=== PATIENT | female | born 1995 | race Caucasian/White ===

== ENCOUNTER 2017-11-30 15:02 | Inpatient (IN) | payer OTHER ==
[~2017-11-30] VITALS: Ht 170.2 cm; Wt 50.2 kg
[2017-11-30] MEDS ORDERED: IV NORMAL SALINE 1000 ML BAG IV ONE (15:45)
[2017-11-30] MEDS ORDERED: MORPHINE SULFATE 2 MG/1 ML DISP.SYRIN IV ONE (15:45)
[2017-11-30] MEDS ORDERED: ONDANSETRON 4 MG/2 ML VIAL IV ONE (15:45)
[2017-11-30] MEDS ORDERED: PANTOPRAZOLE SODIUM 40 MG VIAL IV ONE (15:45)
[2017-11-30 15:59] LABS: EOSINOPHILS % (AUTO) 0.4 % (0.0-7.0); HEMATOCRIT 39.9 % (31.2-41.9); HEMOGLOBIN 13.2 g/dL (10.9-14.3); LYMPHOCYTES # (AUTO) 2.1 K/uL (20.0-40.0); LYMPHOCYTES % (AUTO) 43.4 % (20.5-51.5); MEAN CORPUSCULAR HEMOGLOBIN 27.6 uug (24.7-32.8); MEAN CORPUSCULAR HGB CONC 33 g/dL (32.3-35.6); MEAN CORPUSCULAR VOLUME 83.2 fL (75.5-95.3); MONOCYTES # (AUTO) 0.4 K/uL (2.0-10.0); MONOCYTES % (AUTO) 8.4 % (0.0-11.0); NEUTROPHILS # (AUTO) 2.3 K/uL (1.8-8.9); NEUTROPHILS % (AUTO) 47.8 % (38.5-71.5); PLATELET COUNT (AUTO) 198 K/uL (179-408); WHITE BLOOD COUNT (AUTO) 4.9 K/uL (3.8-11.8)
[2017-11-30] MEDS ORDERED: ONDANSETRON 4 MG/2 ML VIAL ONE ×2 (15:59→19:36)
[2017-11-30] MEDS ORDERED: PANTOPRAZOLE SODIUM 40 MG VIAL ONE (15:59)
[2017-11-30] MEDS ORDERED: MORPHINE SULFATE 2 MG/1 ML DISP.SYRIN ONE (16:00)
[2017-11-30 16:20] LABS: BILIRUBIN,DIRECT 0.1 mg/dL (0.0-0.2); BILIRUBIN,TOTAL 0.7 mg/dL (0.2-1.0); CREATININE 0.8 mg/dL (0.6-1.3); POTASSIUM 4.3 mmol/L (3.5-5.1); TOTAL PROTEIN, SERUM 6.8 g/dL (6.4-8.2)
[2017-11-30] MEDS ORDERED: NORMAL SALINE FLUSH 10 ML DISP.SYRIN ONE (16:43)
[2017-11-30] MEDS ORDERED: IV NORMAL SALINE 100 ML ONE (16:43)
[2017-11-30] MEDS ORDERED: IOHEXOL 300MG/ML 100 ML INFUS..BTL ONE (16:43)
[2017-11-30] MEDS ORDERED: MORPHINE SULFATE 4 MG/1 ML DISP.SYRIN IV ONE (16:45)
[2017-11-30] MEDS ORDERED: MORPHINE SULFATE 4 MG/1 ML DISP.SYRIN ONE (16:59)
[2017-11-30 17:28] LABS: *BILIRUBIN,URIN NEGATIVE (NEGATIVE); *BLOOD, URINE NEGATIVE (NEGATIVE); *CLARITY,URINE CLEAR (CLEAR); *COLOR,URINE YELLOW (YELLOW); *KETONES,URINE NEGATIVE (NEGATIVE); *PROTEIN,URINE NEGATIVE (NEGATIVE); *UROBILINOGEN,URINE 0.2 E.U./dl (NORMAL); LEUKOCYTE ESTERASE ,URINE NEGATIVE (NEGATIVE); NITRITE, URINE NEGATIVE (NEGATIVE); PH,URINE 7.5 (5.0-8.0); UGLUCOSE NEGATIVE (NEGATIVE)
[2017-11-30 17:47] LABS: BACTERIA,URINE MODERATE /HPF (NONE SEEN); RBC,URINE 0-3 /HPF (0-3); SQUAMOUS EPITHELIAL CELL,UR MODERATE /HPF (NONE SEEN)
[2017-11-30] MEDS ORDERED: KETOROLAC TROMETHAMINE 30 MG INJ ONE (18:42)
[2017-11-30] MEDS ORDERED: KETOROLAC TROMETHAMINE 30 MG INJ IVP ONE (19:00)
[2017-11-30] MEDS ORDERED: HYDROMORPHONE 1 MG/1 ML DISP.SYRIN IV ONE ×2 (19:30→21:15)
[2017-11-30] MEDS ORDERED: ONDANSETRON IV *ER 4 MG/2 ML VIAL IV ONE (19:30)
[2017-11-30] MEDS ORDERED: HYDROMORPHONE 2 MG/1 ML DISP.SYRIN ONE ×2 (19:35→21:17)
[2017-11-30] MEDS ORDERED: IV D5W-0.45% NS +20 KCL 1,000 ML IV ONE (21:04)
[2017-11-30 21:51] VITALS: BP 102/41
[2017-11-30] MEDS ORDERED: ACETAMINOPHEN 650 MG SUPP.RECT RC PRN (22:00)
[2017-11-30] MEDS ORDERED: BISACODYL 10 MG SUPP.RECT RC PRN (22:00)
[2017-11-30] MEDS: HYDROMORPHONE 2 MG/1 ML DISP.SYRIN IV PRN (23:08)
[2017-12-01] MEDS: HYDROMORPHONE 2 MG/1 ML DISP.SYRIN IV PRN ×7 (01:43→23:06)
[2017-12-01] MEDS: IV D5/ 0.9% NACL 1,000 ML IV PRN ×3 (01:48→23:09)
[2017-12-01 04:00] VITALS: BP 97/60
[2017-12-01] MEDS: diphenhydrAMINE 50 MG/1 ML VIAL IV PRN ×3 (05:52→20:19)
[2017-12-01 06:22] LABS: BASOPHILS % (AUTO) 0.1 % (0.0-2.0); EOSINOPHILS % (AUTO) 0.8 % (0.0-7.0); HEMOGLOBIN 11.9 g/dL (10.9-14.3); LYMPHOCYTES # (AUTO) 2.4 K/uL (20.0-40.0); LYMPHOCYTES % (AUTO) 57.3 % (20.5-51.5); MEAN CORPUSCULAR HEMOGLOBIN 28.2 uug (24.7-32.8); MEAN CORPUSCULAR HGB CONC 34 g/dL (32.3-35.6); MEAN CORPUSCULAR VOLUME 82.9 fL (75.5-95.3); MONOCYTES # (AUTO) 0.3 K/uL (2.0-10.0); MONOCYTES % (AUTO) 8.1 % (0.0-11.0); NEUTROPHILS # (AUTO) 1.4 K/uL (1.8-8.9); NEUTROPHILS % (AUTO) 33.7 % (38.5-71.5); PLATELET COUNT (AUTO) 170 K/uL (179-408); RED BLOOD CELL COUNT(AUTO) 4.23 MIL/uL (3.63-4.92); WHITE BLOOD COUNT (AUTO) 4.1 K/uL (3.8-11.8)
[2017-12-01 06:30] LABS: HEMATOCRIT 35.1 % (31.2-41.9)
[2017-12-01 06:34] LABS: BILIRUBIN,TOTAL 0.6 mg/dL (0.2-1.0); CREATININE 0.9 mg/dL (0.6-1.3); MAGNESIUM 1.8 mg/dL (1.8-2.4); POTASSIUM 4.9 mmol/L (3.5-5.1); TOTAL PROTEIN, SERUM 5.8 g/dL (6.4-8.2)
[2017-12-01] MEDS: PANTOPRAZOLE SODIUM 40 MG VIAL IV SCH (07:00)
[2017-12-01] MEDS: ONDANSETRON 4 MG/2 ML VIAL IV PRN ×3 (09:26→23:07)
[2017-12-01] MEDS ORDERED: BISACODYL 10 MG SUPP.RECT RC ONE (10:30)
[2017-12-01 11:14] VITALS: BP 91/47
[2017-12-01] MEDS: SUCRALFATE 1 G/10 ML LIQUID UDC PO SCH ×3 (12:12→21:35)
[2017-12-01 15:27] VITALS: BP 93/50
[2017-12-01 15:40] VITALS: BP 100/50
[2017-12-01 17:10] VITALS: BP 187/83
[2017-12-01 20:25] VITALS: BP 97/51
[2017-12-01 22:52] LABS: *AMPHETAMINE, URINE NEGATIVE (NEGATIVE); *BARBITURATE, URINE NEGATIVE (NEGATIVE); *CANNABINOID, URINE NEGATIVE (NEGATIVE); *COCCAINE, URINE NEGATIVE (NEGATIVE); *OPIATE, URINE POSITIVE (NEGATIVE); *PHENCYCLIDINE SCREEN,URINE NEGATIVE (NEGATIVE)
[2017-12-02] MEDS: HYDROMORPHONE 2 MG/1 ML DISP.SYRIN IV PRN ×6 (03:26→20:08)
[2017-12-02 04:00] VITALS: BP 90/47
[2017-12-02] MEDS: PANTOPRAZOLE SODIUM 40 MG VIAL IV SCH (06:25)
[2017-12-02 06:26] LABS: CREATININE 0.9 mg/dL (0.6-1.3); MAGNESIUM 1.6 mg/dL (1.8-2.4); PHOSPHOROUS 4.7 mg/dL (2.5-4.9)
[2017-12-02] MEDS: SUCRALFATE 1 G/10 ML LIQUID UDC PO SCH ×4 (06:30→20:06)
[2017-12-02 06:45] LABS: EOSINOPHILS % (AUTO) 0.6 % (0.0-7.0); HEMATOCRIT 34.2 % (31.2-41.9); HEMOGLOBIN 11.6 g/dL (10.9-14.3); LYMPHOCYTES # (AUTO) 1.7 K/uL (20.0-40.0); LYMPHOCYTES % (AUTO) 48.5 % (20.5-51.5); MEAN CORPUSCULAR HEMOGLOBIN 28.2 uug (24.7-32.8); MEAN CORPUSCULAR HGB CONC 34 g/dL (32.3-35.6); MEAN CORPUSCULAR VOLUME 83.5 fL (75.5-95.3); MONOCYTES # (AUTO) 0.3 K/uL (2.0-10.0); MONOCYTES % (AUTO) 8.7 % (0.0-11.0); NEUTROPHILS # (AUTO) 1.5 K/uL (1.8-8.9); NEUTROPHILS % (AUTO) 42.2 % (38.5-71.5); PLATELET COUNT (AUTO) 161 K/uL (179-408); WHITE BLOOD COUNT (AUTO) 3.6 K/uL (3.8-11.8)
[2017-12-02] MEDS: IV D5/ 0.9% NACL 1,000 ML IV PRN ×2 (08:11→18:56)
[2017-12-02] MEDS: diphenhydrAMINE 50 MG/1 ML VIAL IV PRN ×3 (09:51→21:55)
[2017-12-02 12:00] VITALS: BP 110/69
[2017-12-02] MEDS: MAGNESIUM SULFATE/D5W 100 ML IV SCH ×2 (12:15→13:18)
[2017-12-02] MEDS: ONDANSETRON 4 MG/2 ML VIAL IV PRN ×2 (13:17→20:08)
[2017-12-02 15:54] VITALS: BP 100/54
[2017-12-02 19:53] VITALS: BP 101/65
[2017-12-02] MEDS ORDERED: HYDROMORPHONE 2 MG/1 ML DISP.SYRIN IV ONE (21:45)
[2017-12-03] MEDS: HYDROMORPHONE 2 MG/1 ML DISP.SYRIN IV PRN ×5 (03:27→20:19)
[2017-12-03] MEDS: IV D5/ 0.9% NACL 1,000 ML IV PRN ×2 (03:33→14:00)
[2017-12-03 04:00] VITALS: BP 93/57
[2017-12-03] MEDS: diphenhydrAMINE 50 MG/1 ML VIAL IV PRN ×3 (04:07→16:51)
[2017-12-03] MEDS: ONDANSETRON 4 MG/2 ML VIAL IV PRN ×3 (06:28→20:30)
[2017-12-03] MEDS: PANTOPRAZOLE SODIUM 40 MG VIAL IV SCH (06:35)
[2017-12-03] MEDS: SUCRALFATE 1 G/10 ML LIQUID UDC PO SCH ×4 (07:30→20:19)
[2017-12-03 11:39] VITALS: BP 99/50
[2017-12-03] MEDS ORDERED: PROPOFOL 200 MG/20 ML BOTTLE IV ONE (11:55)
[2017-12-03] MEDS ORDERED: LIDOCAINE 1% 50 ML VIAL INJ ONE (11:55)
[2017-12-03] MEDS ORDERED: SUCCINYLCHOLINE CHLORIDE 200 MG/10 ML VIAL MC ONE (12:21)
[2017-12-03] MEDS ORDERED: HYDROMORPHONE 2 MG/1 ML DISP.SYRIN IV PRN (13:15)
[2017-12-03] MEDS ORDERED: METOCLOPRAMIDE HCL 10 MG/2 ML VIAL IV PRN (13:15)
[2017-12-03] MEDS ORDERED: HYDROMORPHONE 1 MG/1 ML DISP.SYRIN IV PRN (13:15)
[2017-12-03 16:09] VITALS: BP 104/56
[2017-12-03] MEDS ORDERED: HYDR2DIS IV ×2 (18:41)
[2017-12-03] MEDS ORDERED: ONDA4VIA30 IV (18:41)
[2017-12-03] MEDS ORDERED: SUCR1ORA PO (18:41)
[2017-12-03] MEDS ORDERED: BISA10SU12 RC (18:41)
[2017-12-03] MEDS ORDERED: PANT40VI IV (18:41)
[2017-12-03] MEDS ORDERED: METO5VIA3 IV (18:41)
[2017-12-03] MEDS ORDERED: ACET650S24 RC (18:41)
[2017-12-03] MEDS ORDERED: DIPH50VI5 IV (18:41)
[2017-12-03 20:15] VITALS: BP 110/66
== END 2017-12-03 21:55 | disposition short-term general hospital (02) ==
LOC: ER 15:03 → MED 21:18
PROVIDERS: ADMIT Internal Medicine; ATTEND Internal Medicine
PROC: 0DB98ZX Excision of Duodenum, Via Natural or Artificial Opening Endoscopic, Diagnostic (ICD-10-PCS; principal; 2017-12-03 11:55)
PROC: 0DB78ZX Excision of Stomach, Pylorus, Via Natural or Artificial Opening Endoscopic, Diagnostic (ICD-10-PCS; principal; 2017-12-03 11:55)
DX: K80.10 Calculus of gallbladder with chronic cholecystitis without obstruction (principal); K22.10 Ulcer of esophagus without bleeding; K44.9 Diaphragmatic hernia without obstruction or gangrene; K29.80 Duodenitis without bleeding; K29.70 Gastritis, unspecified, without bleeding; Z72.0 Tobacco use; R63.4 Abnormal weight loss; Z68.1 Body mass index [BMI] 19.9 or less, adult; K58.1 Irritable bowel syndrome with constipation; K63.9 Disease of intestine, unspecified; Z82.49 Family history of ischemic heart disease and other diseases of the circulatory system
CPT/HCPCS: 36415; 80307; 83550; 83690; 83735; 84100; 84443; 84703; 85025; 85651; 85730; 86140; 88342; A4217; A4663; C9113; J0330; J1170; J1200; J1885; J2270; J2405; J3475; J3490; J7030; J7042; Q9967

== ENCOUNTER 2018-06-02 08:27 | Emergency (ER) | payer BC, OTHER ==
[~2018-06-02] VITALS: Ht 170.2 cm; Wt 53.5 kg
[~2018-06-02 08:27] MED LIST: ACET650S24 RC; BISA10SU12 RC; DIPH50VI15 IV; HYDR2DIS IV; METO5VIA3 IV; ONDA4VIA23 IV; PANT40VI IV; SUCR1ORA PO
--- NOTE | 2018-06-02 09:06 | NUR ---
at bedside to examine patient.
[2018-06-02] MEDS ORDERED: METOCLOPRAMIDE HCL 10 MG/2 ML VIAL IV ONE (09:15)
[2018-06-02] MEDS ORDERED: KETOROLAC TROMETHAMINE 15 MG INJ IV ONE (09:15)
[2018-06-02] MEDS ORDERED: KETOROLAC TROMETHAMINE 15 MG INJ ONE (09:19)
[2018-06-02] MEDS ORDERED: METOCLOPRAMIDE HCL 10 MG/2 ML VIAL ONE (09:19)
--- NOTE | 2018-06-02 09:55 | NUR ---
PT STATING NOT TAKEN CARE OF AND W/ SEVER BODY ACHES SHE DID NOT RECIEVE DILAUDID. MD NOTIFIED. PT WISHES TO LEAVE AND DOSE NOT WANT TO CONTINUE W/ CARE. HL REMOVED, SITE INTACT, 4X4 APPLIED.
--- NOTE | 2018-06-02 10:00 | NUR ---
Patient eloped from facility. ER physician notified.
[2018-06-02 10:04] LABS: *BILIRUBIN,URIN NEGATIVE (NEGATIVE); *BLOOD, URINE Trace-intact (NEGATIVE); *CLARITY,URINE CLOUDY (CLEAR); *KETONES,URINE TRACE (NEGATIVE); *PROTEIN,URINE NEGATIVE (NEGATIVE); *UROBILINOGEN,URINE 0.2 E.U./dl (NORMAL); LEUKOCYTE ESTERASE ,URINE TRACE (NEGATIVE); NITRITE, URINE POSITIVE (NEGATIVE); PH,URINE 7.5 (5.0-8.0); UGLUCOSE NEGATIVE (NEGATIVE)
[2018-06-02 10:15] LABS: *COLOR,URINE YELLOW (YELLOW)
[2018-06-02 10:19] LABS: BACTERIA,URINE MANY /HPF (NONE SEEN); MUCUS,URINE FEW /LPF (0-FEW); SQUAMOUS EPITHELIAL CELL,UR MODERATE /HPF (NONE SEEN)
== END 2018-06-02 10:00 | disposition left against medical advice (07) ==
LOC: ER 08:27
DX: Z76.5 Malingerer [conscious simulation] (principal); R11.2 Nausea with vomiting, unspecified; R10.31 Right lower quadrant pain; R10.32 Left lower quadrant pain
CPT/HCPCS: 71045; 81001; 87040; 87077; 87086; 87186; 93005; 96374; 96375; 99284; J1885; J2765; A4663; J7030

== ENCOUNTER 2018-08-30 13:40 | Emergency (ER) | payer BC, OTHER ==
[~2018-08-30] VITALS: Ht 170.2 cm; Wt 52.2 kg
[2018-08-30] MEDS ORDERED: HYDROMORPHONE 1 MG/1 ML DISP.SYRIN IV ONE ×2 (14:00→15:45)
[2018-08-30] MEDS ORDERED: ONDANSETRON 4 MG/2 ML VIAL IV ONE (14:00)
[2018-08-30] MEDS ORDERED: IV NORMAL SALINE 1000 ML BAG IV ONE (14:00)
[2018-08-30] MEDS ORDERED: HYDROMORPHONE 2 MG/1 ML DISP.SYRIN ONE ×2 (14:05→15:55)
[2018-08-30] MEDS ORDERED: ONDANSETRON 4 MG/2 ML VIAL ONE ×2 (14:05→15:55)
[2018-08-30 14:07] LABS: BASOPHILS % (AUTO) 0.1 % (0.0-2.0); HEMATOCRIT 42.3 % (31.2-41.9); LYMPHOCYTES # (AUTO) 0.6 K/uL (20.0-40.0); LYMPHOCYTES % (AUTO) 8.4 % (20.5-51.5); MEAN CORPUSCULAR HEMOGLOBIN 27.5 uug (24.7-32.8); MEAN CORPUSCULAR HGB CONC 33 g/dL (32.3-35.6); MEAN CORPUSCULAR VOLUME 83.5 fL (75.5-95.3); MONOCYTES # (AUTO) 0.1 K/uL (2.0-10.0); MONOCYTES % (AUTO) 1.8 % (0.0-11.0); NEUTROPHILS # (AUTO) 6.6 K/uL (1.8-8.9); NEUTROPHILS % (AUTO) 89.7 % (38.5-71.5); PLATELET COUNT (AUTO) 224 K/uL (179-408); RED BLOOD CELL COUNT(AUTO) 5.07 MIL/uL (3.63-4.92); WHITE BLOOD COUNT (AUTO) 7.4 K/uL (3.8-11.8)
[2018-08-30 14:17] LABS: CREATININE 0.9 mg/dL (0.6-1.3); POTASSIUM 4.3 mmol/L (3.5-5.1)
[2018-08-30 14:23] LABS: BILIRUBIN,DIRECT 0.1 mg/dL (0.0-0.2); BILIRUBIN,TOTAL 0.3 mg/dL (0.2-1.0); TOTAL PROTEIN, SERUM 7.3 g/dL (6.4-8.2)
[2018-08-30] MEDS ORDERED: ONDANSETRON IV *ER 4 MG/2 ML VIAL IV ONE (15:45)
--- NOTE | 2018-08-30 16:03 | NUR ---
PT WAS D/C'd TO HOME. D/C INSTRUCTIONS GIVEN TO THE PT AND TO HER MOTHER.
[2018-08-30 16:06] VITALS: BP 121/68
== END 2018-08-30 16:17 | disposition home or self-care (01) ==
LOC: ER 13:42
DX: K52.9 Noninfective gastroenteritis and colitis, unspecified (principal); Z90.49 Acquired absence of other specified parts of digestive tract; Z79.891 Long term (current) use of opiate analgesic; Z79.899 Other long term (current) drug therapy
CPT/HCPCS: 36415; 71045; 74176; 80048; 80076; 83690; 84702; 85025; 96361; 96374; 96375; 96376; 99284; J1170 ×2; J2405 ×2; 12031; A4663; J7030

== ENCOUNTER 2018-09-01 09:16 | Emergency (ER) | payer BC ==
[~2018-09-01] VITALS: Ht 170.2 cm; Wt 52.2 kg
[2018-09-01] MEDS ORDERED: KETOROLAC TROMETHAMINE 30 MG INJ ONE (09:28)
[2018-09-01] MEDS ORDERED: ONDANSETRON ODT 4 MG TAB.RAPDIS ONE (09:28)
[2018-09-01] MEDS ORDERED: ONDANSETRON ODT 4 MG TAB.RAPDIS SL ONE (09:30)
[2018-09-01] MEDS ORDERED: KETOROLAC TROMETHAMINE 30 MG INJ IM ONE (09:30)
--- NOTE | 2018-09-01 09:34 | NUR ---
Pt refused Toradol 30mg IM and eloped. 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
== END 2018-09-01 09:38 | disposition home or self-care (01) ==
LOC: ER 09:16
DX: F11.23 Opioid dependence with withdrawal (principal); Z90.49 Acquired absence of other specified parts of digestive tract; Z79.899 Other long term (current) drug therapy
CPT/HCPCS: 99282; J1885; A4663; Q0162